=== PATIENT | male | born 1985 | race Caucasian/White ===

== ENCOUNTER 2019-07-12 15:47 | Emergency (ER) | payer BC ==
[2019-07-12] MEDS ORDERED: Ketorolac 60 MG/2 ML SDV IM ONE (15:58)
[2019-07-12 16:30] LABS: CHLORIDE,CL 103 mmol/L (98-107); SODIUM,NA 142 mmol/L (136-145)
[2019-07-12] MEDS ORDERED: traMADol 50 MG Tab PO ONE (16:42)
[2019-07-12] MEDS ORDERED: Magnesium Citrate Solution 296 ML Bottle PO ONE (16:42)
--- NOTE | 2019-07-12 16:45 | EDM.PDOC ---
ED HPI GENERAL MEDICAL PROBLEM - General Chief Complaint: Abdominal Pain Stated Complaint: Abdominal Pain Time Seen by Provider: 07/12/19 16:15 Source of Information: Reports: Patient History Limitations: Reports: No Limitations - History of Present Illness INITIAL COMMENTS - FREE TEXT/NARRATIVE: Patient came to ER due to sudden upper abdominal pain. Described it as squeezing /cramping sensation. [place] similar to when he needs to pass gas/have bowel movement. Sat on toilet but did not do either. No accompanying nausea/emesis. May have felt a bit clammy during height of pain. Improved when he layed down on left side, worsened again when he tried laying on right side. Pain lasted about one hour total, and was almost completely resolved by the time he arrived to the ER. Pain free at time of exam. [place] fine up until start of pain. Was watching movie with one of his children. Not eating/drinking at time pain started. No one in household ill. Denies history of similar pain. Had two bowel movements earlier this morning. Normal per patient. No recent illness/injury. No fever/chills. Denies HEENT changes/cough/wheeze/SOB/chest pain/back pain/UTI complaints/ hematuria/problems with urination/neuro changes. - Related Data Allergies Allergy/AdvReac Type Severity Reaction Status Date / Time No Known Allergies Allergy Verified 07/12/19 15:49 Home Meds: Home Meds . [No Known Home Meds] 07/12/19 [History] Past Medical History - Past Health History Medical/Surgical History: Denies Medical/Surgical History Social & Family History - Tobacco Use Smoking Status *Q: Never Smoker - Alcohol Use Alcohol Use History: Yes ED ROS GENERAL - Review of Systems Review Of Systems: ROS reveals no pertinent complaints other than HPI. ED EXAM, GENERAL - Physical Exam Exam: See Below Exam Limited By: No Limitations General Appearance: Alert, WD/WN, No Apparent Distress Eye Exam: Bilateral Eye: EOMI, PERRL Nose: No: Nasal Deformity, Nasal Swelling, Nasal Drainage Throat/Mouth: Normal Lips, Normal Voice, No Airway Compromise Head: Atraumatic, Normocephalic Neck: Supple Respiratory/Chest: No Respiratory Distress, Lungs Clear, Normal Breath Sounds, No Accessory Muscle Use, Chest Non-Tender Cardiovascular: Regular Rate, Rhythm, No Murmur GI/Abdominal: Normal Bowel Sounds, Soft, Non-Tender, No Distention, Other ( Feels slightly flores on right side of abdomen than left) (Male) Exam: Deferred Rectal (Males) Exam: Deferred Back Exam: Normal Inspection, Full Range of Motion. No: CVA Tenderness (L), CVA Tenderness (R), Decreased Range of Motion, Muscle Spasm, Paraspinal Tenderness Extremities: Normal Inspection, Normal Range of Motion, Non-Tender, Normal Capillary Refill Neurological: Alert, Oriented, Normal Cognition, Normal Gait, No Motor/Sensory Deficits Psychiatric: Normal Affect, Normal Mood Skin Exam: Warm, Dry, Intact, Normal Color Course - Vital Signs Last Recorded V/S: Last Vital Signs Temp 36.4 C 07/12/19 15:50 Pulse 65 07/12/19 15:50 Resp 14 07/12/19 15:50 BP 117/67 07/12/19 15:50 Pulse Ox 100 07/12/19 15:50 - Orders/Labs/Meds Orders: Active Orders 24 hr Category Date Time Status Abdomen 2V AP Flat Upright [CR] Stat Exams 07/12/19 15:57 Taken Labs: Laboratory Tests 07/12/19 07/12/19 07/12/19 Range/Units 16:05 16:05 16:05 WBC 11.9 H (4.0-10.2) K/uL RBC 5.05 (4.33-5.41) M/uL Hgb 14.9 (13.1-16.8) g/dL Hct 43.3 (39.0-49.0) % MCV 85.7 (84.0-98.0) fL MCH 29.5 (28.2-33.3) pg MCHC 34.4 (31.7-36.0) g/dL RDW 12.5 (11.2-14.1) % Plt Count 192 (150-350) K/uL Neut % (Auto) 71.4 (45.0-80.0) % Lymph % (Auto) 20.4 (10.0-50.0) % [place] % (Auto) 6.6 (2.0-14.0) % Eos % (Auto) 1.3 (0.0-5.0) % Baso % (Auto) 0.3 (0.0-2.0) % Neut # (Auto) 8.51 H (1.40-7.00) K/uL Lymph # (Auto) 2.43 (0.50-3.50) K/uL [place] # (Auto) 0.79 (0.00-1.00) K/uL Eos # (Auto) 0.15 (0.00-0.50) K/uL Baso # (Auto) 0.03 (0.00-0.20) K/uL Sodium 142 (136-145) mmol/L Potassium 3.8 (3.5-5.1) mmol/L Chloride 103 (98-107) mmol/L Carbon Dioxide 26.1 (21.0-32.0) mmol/L BUN 21 H (7-18) mg/dL Creatinine 1.15 (0.51-1.17) mg/dL Est Cr Clr Drug Dosing 78.73 mL/min Estimated GFR (MDRD) > 60 mL/min Glucose 108 H (74-106) mg/dL Lactic Acid 1.2 (0.4-2.0) mmol/L Calcium 9.0 (8.5-10.1) mg/dL Total Bilirubin 0.4 (0.2-1.0) mg/dL AST 95 H (15-37) U/L ALT 74 (12-78) U/L Alkaline Phosphatase 77 (46-116) IU/L Total Protein 7.3 (6.4-8.2) g/dL Albumin 4.2 (3.4-5.0) g/dL Specimen Type Urine Color Urine Appearance Urine pH (5.0-9.0) Ur Specific [place] (1.005-1.030) Urine Protein (NEGATIVE) mg/dL Urine Glucose (UA) (NEGATIVE) mg/dL Urine Ketones (NEGATIVE) mg/dL Urine Occult Blood (NEGATIVE) Urine Nitrite (NEGATIVE) Urine Bilirubin (NEGATIVE) Urine Urobilinogen (0.2-1.0) E.U./dL Ur Leukocyte Esterase (NEGATIVE) Urine RBC /HPF Urine WBC /HPF Ur Epithelial Cells /LPF Amorphous Sediment (0/HPF) /HPF Urine Bacteria (NONE TO FEW) /HPF 07/12/19 Range/Units 16:20 WBC (4.0-10.2) K/uL RBC (4.33-5.41) M/uL Hgb (13.1-16.8) g/dL Hct (39.0-49.0) % MCV (84.0-98.0) fL MCH (28.2-33.3) pg MCHC (31.7-36.0) g/dL RDW (11.2-14.1) % Plt Count (150-350) K/uL Neut % (Auto) (45.0-80.0) % Lymph % (Auto) (10.0-50.0) % [place] % (Auto) (2.0-14.0) % Eos % (Auto) (0.0-5.0) % Baso % (Auto) (0.0-2.0) % Neut # (Auto) (1.40-7.00) K/uL Lymph # (Auto) (0.50-3.50) K/uL [place] # (Auto) (0.00-1.00) K/uL Eos # (Auto) (0.00-0.50) K/uL Baso # (Auto) (0.00-0.20) K/uL Sodium (136-145) mmol/L Potassium (3.5-5.1) mmol/L Chloride (98-107) mmol/L Carbon Dioxide (21.0-32.0) mmol/L BUN (7-18) mg/dL Creatinine (0.51-1.17) mg/dL Est Cr Clr Drug Dosing mL/min Estimated GFR (MDRD) mL/min Glucose (74-106) mg/dL Lactic Acid (0.4-2.0) mmol/L Calcium (8.5-10.1) mg/dL Total Bilirubin (0.2-1.0) mg/dL AST (15-37) U/L ALT (12-78) U/L Alkaline Phosphatase (46-116) IU/L Total Protein (6.4-8.2) g/dL Albumin (3.4-5.0) g/dL Specimen Type Urinblad Urine Color Yellow Urine Appearance Cloudy Urine pH 8.5 (5.0-9.0) Ur Specific [place] 1.020 (1.005-1.030) Urine Protein Negative (NEGATIVE) mg/dL Urine Glucose (UA) Negative (NEGATIVE) mg/dL Urine Ketones Negative (NEGATIVE) mg/dL Urine Occult Blood Negative (NEGATIVE) Urine Nitrite Negative (NEGATIVE) Urine Bilirubin Negative (NEGATIVE) Urine Urobilinogen 1.0 (0.2-1.0) E.U./dL Ur Leukocyte Esterase Negative (NEGATIVE) Urine RBC 0-5 /HPF Urine WBC 0-5 /HPF Ur Epithelial Cells Rare /LPF Amorphous Sediment Many H (0/HPF) /HPF Urine Bacteria Rare (NONE TO FEW) /HPF Meds: Medications Discontinued Medications Generic Name Dose Route Start Last Admin Trade Name [place] PRN Reason Stop Dose Admin Ketorolac Tromethamine 60 mg 07/12/19 15:58 Toradol IM 07/12/19 15:59 ONETIME ONE Magnesium Citrate 296 ml 07/12/19 16:42 07/12/19 16:50 Citrate Of Magnesia PO 07/12/19 16:43 296 ml ONETIME ONE Administration Tramadol HCl 50 mg 07/12/19 16:42 07/12/19 16:50 Ultram PO 07/12/19 16:43 50 mg ONETIME ONE Administration - Radiology Interpretation Free Text/Narrative:: Abdominal film flat/upright: No acute changes observed. Patient does have stool throughout colon and a larger collection of stool is noted near hepatic flexure - Re-Assessments/Exams Free Text/Narrative Re-Assessment/Exam: Mildly elevated WBC, AST 95. Remaining LFTs within normal range. UA normal. Patient remained pain-free for rest of visit. Suspect that patient may have colicky pain related to constipation given xray findings, history, quick resolution of pain, and increased palpable fullness on right side of abdomen. Cannot rule out other cause of pain at this time but gallstones/renal colic/gastroenteritis/ulcer-related pain would not have likely resolved so quickly and completely. Plan at this time is to have patient observe for changes and to drink single bottle of Mag Citrate. He is to see if pain returns after Mag Citrate has a chance to have an effect. Patient initially refused Toradol due to pain completely resolving. A single dose of Tramadol PO was given prior to discharge to help with any cramping that will likely accompany the action of the Mag Citrate. Precautions reviewed. Patient is to return to the ER if any problems arise. Lab results reviewed with patient and he is aware that the AST is elevated and should be rechecked in 4-6 weeks. Recommended increased water intake. High normal BUN/Cr noted. Departure - Departure Time of Disposition: 17:00 Disposition: Home, Self-Care 01 Condition: Good Clinical Impression: Abdominal pain Qualifiers: Abdominal location: upper abdomen, unspecified Qualified Code(s): R10.10 - Upper abdominal pain, unspecified - Discharge Information Instructions: Constipation, Adult, [id number], Tramadol tablets, Abdominal Pain, Adult, [id number], Pain Without a Known Cause, Magnesium Citrate oral solution Referrals: PCP,Not In Area [Primary Care Provider] - Forms: ED Department Discharge Additional Instructions: See if pain returns after taking Mag Citrate and having resulting bowel movements. If it does, please return to clinic or ER to get rechecked and have further planning as needed. One of your liver function tests was a little elevated. That should be rechecked in 4-6 weeks. - My Orders Last 24 Hours: My Active Orders 07/12/19 15:57 Abdomen 2V AP Flat Upright [CR] Stat - Assessment/Plan Last 24 Hours: My Active Orders 07/12/19 15:57 Abdomen 2V AP Flat Upright [CR] Stat
== END 2019-07-12 17:00 | disposition home or self-care (01) ==
LOC: LL.ED 15:47
DX: R10.11 Right upper quadrant pain (principal); R10.12 Left upper quadrant pain
CPT/HCPCS: 36415; 74019; 80053; 81001; 83605; 85025; 99284; A9270

== ENCOUNTER 2021-06-19 10:31 | Emergency (ER) | payer BC ==
[2021-06-19 11:04] VITALS: BP 128/84; PULSE 73
[2021-06-19] MEDS ORDERED: Sodium Chloride 0.9% 10 ML Syringe FLUSH PRN (11:30)
[2021-06-19 11:34] LABS: ANION GAP 7.1 meq/L (7-15); CHLORIDE,CL 104 mmol/L (98-107); SODIUM,NA 141 mmol/L (136-145)
[2021-06-19] MEDS: Ketorolac 30 MG/ML SDV IM ONE (11:38)
[2021-06-19] MEDS: traMADol 50 MG Tab PO ONE (11:39)
[2021-06-19] MEDS: Iopamidol 612 MG/ML 100 ML Bottle IVPUSH STA (11:51)
[2021-06-19] MEDS: Magnesium Citrate Solution 296 ML Bottle PO ONE (13:53)
--- NOTE | 2021-06-20 10:31 | EDM.PDOC ---
ED HPI GENERAL MEDICAL PROBLEM - General Chief Complaint: Abdominal Pain Stated Complaint: abdominal pain Time Seen by Provider: 06/19/21 11:00 Source of Information: Reports: Patient History Limitations: Reports: No Limitations - History of Present Illness INITIAL COMMENTS - FREE TEXT/NARRATIVE: Pt. presents to ER with complaints of abdominal pain. Pt. states that the discomfort started about 2 weeks ago, and seems to be getting progressively worse. He states that the discomfort is intermittent in nature. He states that it is located across his upper abdomen and down into the LLQ. He states that he has had issues with constipation recently and in the past. He did start taking Miralax but this has not helped. He has not taken any laxative such as mag citrate, which helped last time. Pt. denies any fever or chills. No chest pain or shortness of breath. He states that his BMs have been hard but he has been able to pass stool. Denies any dysuria. No hematuria. Denies any flank pain. Onset Date: 06/05/21 Location: Reports: Abdomen Quality: Reports: Ache Severity: Moderate Right Upper Abdomen Pain Score (Numeric/FACES): 8 - Related Data Allergies Allergy/AdvReac Type Severity Reaction Status Date / Time No Known Allergies Allergy Verified 06/19/21 10:33 Home Meds: Home Meds polyethylene glycoL 3350 [MiraLAX] 1 pkt PO DAILY PRN 06/19/21 [History] valACYclovir HCl [Valtrex] 1 tab PO BID PRN 06/19/21 [History] Past Medical History - Past Health History Medical/Surgical History: Denies Medical/Surgical History Gastrointestinal History: Reports: Chronic Constipation Immunologic History: Reports: Other (See Below) - Infectious Disease History Infectious Disease History: Reports: Shingles, Other (See Below) Other Infectious Disease History: pt reports reoccuring shingles Social & Family History - Tobacco Use Tobacco Use Status *Q: Current Every Day Tobacco User Years of Tobacco use: 15 Packs/Tins Daily: 0.2 Used Tobacco, but Quit: No Second Hand Smoke Exposure: No - Caffeine Use Caffeine Use: Reports: Coffee - Recreational Drug Use Recreational Drug Use: No ED ROS GENERAL - Review of Systems Review Of Systems: See Below Constitutional: Reports: No Symptoms HEENT: Reports: No Symptoms Respiratory: Reports: No Symptoms Cardiovascular: Reports: No Symptoms Endocrine: Reports: No Symptoms GI/Abdominal: Reports: Abdominal Pain, Constipation. Denies: Diarrhea, Decreased Appetite, Difficulty Swallowing, Distension, Hematemesis, Hematochezia, Melena, Mucous in Stool, Vomiting : Reports: No Symptoms Musculoskeletal: Reports: No Symptoms Skin: Reports: No Symptoms Neurological: Reports: No Symptoms Psychiatric: Reports: No Symptoms Hematologic/Lymphatic: Reports: No Symptoms Immunologic: Reports: No Symptoms ED EXAM, GENERAL - Physical Exam Exam: See Below Exam Limited By: No Limitations General Appearance: Alert, WD/WN, No Apparent Distress Eye Exam: Bilateral Eye: EOMI Nose: Normal Inspection, Normal Mucosa, No Blood Throat/Mouth: Normal Inspection, Normal Lips, Normal Teeth, Normal Gums, Normal Oropharynx, Normal Voice, No Airway Compromise Head: Atraumatic, Normocephalic Neck: Normal Inspection, Supple, Non-Tender, Full Range of Motion Respiratory/Chest: No Respiratory Distress, Lungs Clear, Normal Breath Sounds, No Accessory Muscle Use, Chest Non-Tender Cardiovascular: Normal Peripheral Pulses, Regular Rate, Rhythm, No Edema, No Gallop, No JVD Peripheral Pulses: 4+: Radial (L) GI/Abdominal: Normal Bowel Sounds, Soft, No Organomegaly, No Distention, Tender (Male) Exam: Deferred Rectal (Males) Exam: Deferred Back Exam: Normal Inspection, Full Range of Motion Extremities: Normal Inspection, Normal Range of Motion, No Pedal Edema Neurological: Alert, Oriented, CN II-XII Intact, Normal Cognition, Normal Gait, Normal Reflexes, No Motor/Sensory Deficits Psychiatric: Normal Affect, Normal Mood Skin Exam: Warm, Dry, Intact, Normal Color, No Rash Course - Vital Signs Last Recorded V/S: Last Vital Signs Temp 36.3 C 06/19/21 10:52 Pulse 73 06/19/21 10:52 Resp 18 06/19/21 10:52 BP 128/84 06/19/21 10:52 Pulse Ox 96 06/19/21 10:52 - Orders/Labs/Meds Orders: Active Orders 24 hr Category Date Time Status Abdomen Pelvis w Cont [CT] Stat Exams 06/19/21 11:31 Taken Peripheral IV Insertion Adult [OM.PC] Routine Oth 06/19/21 11:30 Ordered Labs: Laboratory Tests 06/19/21 06/19/21 06/19/21 Range/Units 10:54 10:54 10:54 WBC 9.8 (4.0-10.2) K/uL RBC 5.52 H (4.33-5.41) M/uL Hgb 16.2 (13.1-16.8) g/dL Hct 47.1 (39.0-49.0) % MCV 85.3 (84.0-98.0) fL MCH 29.3 (28.2-33.3) pg MCHC 34.4 (31.7-36.0) g/dL RDW 12.5 (11.2-14.1) % Plt Count 204 (150-350) K/uL Neut % (Auto) 65.3 (45.0-80.0) % Lymph % (Auto) 26.6 (10.0-50.0) % [place] % (Auto) 6.5 (2.0-14.0) % Eos % (Auto) 1.3 (0.0-5.0) % Baso % (Auto) 0.3 (0.0-2.0) % Neut # (Auto) 6.38 (1.40-7.00) K/uL Lymph # (Auto) 2.60 (0.50-3.50) K/uL [place] # (Auto) 0.64 (0.00-1.00) K/uL Eos # (Auto) 0.13 (0.00-0.50) K/uL Baso # (Auto) 0.03 (0.00-0.20) K/uL Sodium 141 (136-145) mmol/L Potassium 4.1 (3.5-5.1) mmol/L Chloride 104 (98-107) mmol/L Carbon Dioxide 29.9 (21.0-32.0) mmol/L Anion Gap 7.1 (7-15) meq/L BUN 19 H (7-18) mg/dL Creatinine 1.23 H (0.51-1.17) mg/dL Est Cr Clr Drug Dosing TNP Estimated GFR (MDRD) > 60 mL/min Glucose 120 H (70-99) mg/dL Lactic Acid 2.2 H (0.4-2.0) mmol/L Calcium 9.1 (8.5-10.1) mg/dL Phosphorus 2.2 L (2.6-4.7) mg/dL Magnesium 2.0 (1.8-2.4) mg/dL Total Bilirubin 0.6 (0.2-1.0) mg/dL AST 85 H (15-37) U/L ALT 78 (12-78) U/L Alkaline Phosphatase 78 (46-116) IU/L C-Reactive Protein < 0.2 (<=0.9) mg/dL Total Protein 7.6 (6.4-8.2) g/dL Albumin 4.4 (3.4-5.0) g/dL Amylase 57 (25-115) U/L Lipase 126 (73-393) U/L Meds: Medications Discontinued Medications Generic Name Dose Route Start Last Admin Trade Name Freq PRN Reason Stop Dose Admin Iopamidol 100 ml 06/19/21 11:40 06/19/21 11:51 Iopamidol 612 Mg/Ml 100 Ml Bottle IVPUSH 06/19/21 11:41 100 ml ONETIME STA Administration Ketorolac Tromethamine 30 mg 06/19/21 11:18 06/19/21 11:38 Ketorolac 30 Mg/Ml Sdv IM 06/19/21 11:19 30 mg ONETIME ONE Administration Magnesium Citrate 250 ml 06/19/21 11:19 06/19/21 13:53 Magnesium Citrate Solution 296 Ml Bottle PO 06/19/21 11:20 250 ml ONETIME ONE Administration Sodium Chloride 10 ml 06/19/21 11:30 Sodium Chloride 0.9% 10 Ml Syringe FLUSH ASDIRECTED PRN Keep Vein Open Tramadol HCl 50 mg 06/19/21 11:18 06/19/21 11:39 Tramadol 50 Mg Tab PO 06/19/21 11:19 50 mg ONETIME ONE Administration - Radiology Interpretation Free Text/Narrative:: CT abdomen and pelvis with contrast obtained. No obvious acute cause for patient discomfort found. No perforation or obstruction. +Gallstones, no cholecystitis. incidental finding of renal nodules requiring further imaging on an outpatient basis which was discussed with the patient. Departure - Departure Time of Disposition: 13:30 Disposition: Home, Self-Care 01 Clinical Impression: Constipation - Discharge Information Instructions: Constipation, Adult Referrals: Sharon Tran NP [Primary Care Provider] - Forms: ED Department Discharge Additional Instructions: Home to rest. Off work today. Increase consumption of water. Mag citrate 1 bottle today to assist with having a bowel movement. Continue with the miralax for stool softener. You can try some docusate or colace if you are still having problems having a BM. Of you are still having severe constipation, you can repeat the mag citrate or take milk of magnesia. Follow-up in the clinic. There was an incidental finding of a nodule on your R kidney that needs to be watched with repeat CT scan in a few months. Sepsis Event Note (ED) - Evaluation Sepsis Screening Result: No Definite Risk - Problem List Review Problem List Initiated/Reviewed/Updated: Yes - My Orders Last 24 Hours: My Active Orders 06/19/21 11:30 Peripheral IV Insertion Adult [OM.PC] Routine 06/19/21 11:31 Abdomen Pelvis w Cont [CT] Stat - Assessment/Plan Last 24 Hours: My Active Orders 06/19/21 11:30 Peripheral IV Insertion Adult [OM.PC] Routine 06/19/21 11:31 Abdomen Pelvis w Cont [CT] Stat Plan: Home to rest. Off work today. Increase consumption of water. Mag citrate 1 bottle today to assist with having a bowel movement. Continue with the miralax for stool softener. You can try some docusate or colace if you are still having problems having a BM. Of you are still having severe constipation, you can repeat the mag citrate or take milk of magnesia. Follow-up in the clinic. There was an incidental finding of a nodule on your R kidney that needs to be watched with repeat CT scan in a few months.
== END 2021-06-19 13:45 | disposition home or self-care (01) ==
LOC: LL.ED 10:31
DX: K59.00 Constipation, unspecified (principal); Z72.0 Tobacco use
CPT/HCPCS: 36415; 74177; 80053; 82150; 83605; 83690; 83735; 84100; 85025; 86140; 96372; 99284; 99284-25; A9270-GY; J1885; Q9967